=== PATIENT | male | born 1995 | race Caucasian/White ===

== ENCOUNTER 2017-01-10 16:48 | Emergency (ER) | payer MEDICAID ==
[~2017-01-10] VITALS: Ht 180.3 cm; Wt 81.6 kg
[2017-01-10 16:58] VITALS: BP 141/89
== END 2017-01-10 18:15 | disposition home or self-care (01) ==
LOC: ED 16:48
DX: A64 Unspecified sexually transmitted disease (principal)

== ENCOUNTER 2017-01-16 08:55 | Emergency (ER) | payer MEDICAID ==
[2017-01-16 10:46] LABS: microscopic required? NO
[2017-01-16 11:13] LABS: UA SPECIFIC GRAVITY <=1.005 (1.005-1.035); urine erythrocyte NEGATIVE (NEGATIVE)
[2017-01-16 11:29] VITALS: BP 130/79
== END 2017-01-16 11:29 | disposition home or self-care (01) ==
LOC: ED 08:55
PROVIDERS: Emergency Medicine
DX: S93.402A Sprain of unspecified ligament of left ankle, initial encounter (principal); X50.1XXA Overexertion from prolonged static or awkward postures, initial encounter; Y93.89 Activity, other specified; Y99.8 Other external cause status; Y92.89 Other specified places as the place of occurrence of the external cause
CPT/HCPCS: J1885; Q0092

== ENCOUNTER 2017-02-02 14:30 | Emergency (ER) | payer MEDICAID ==
[2017-02-02 17:09] LABS: BASOPHIL % 0.4 % (0-2); RED CELL DISTRIBUTION WIDTH 13.2 % (11.5-14.5)
[2017-02-02 17:10] LABS: PLATELET COUNT 469 x10^3mcL (130-400)
[2017-02-02 17:14] LABS: CALCIUM 9.7 mg/dL (8.5-10.1); CARBON DIOXIDE 32.3 mmol/L (21-32); CHLORIDE SERUM 98 mmol/L (98-107); CREATININE SERUM 1.1 mg/dL (0.7-1.3); GFR1 > 60 mL/min; GLUCOSE SERUM 87 mg/dL (74-106); POTASSIUM SERUM 3.9 mmol/L (3.5-5.1); SODIUM SERUM 139 mmol/L (136-145)
[2017-02-02 17:19] LABS: ALKALINE PHOSPHATASE 56 U/L (46-116); ALT/SGPT 20 U/L (16-63); AST/SGOT 24 U/L (15-37); BILIRUBIN TOTAL 0.4 mg/dL (0.20-1.00)
[2017-02-02 17:35] LABS: TOTAL PROTEIN, SERUM 9.1 g/dL (6.4-8.2)
[2017-02-02 18:01] VITALS: BP 115/82
== END 2017-02-02 18:01 | disposition home or self-care (01) ==
LOC: ED 14:30
DX: M19.90 Unspecified osteoarthritis, unspecified site (principal); Z79.899 Other long term (current) drug therapy